=== PATIENT | female | born 1965 | race Caucasian/White ===

== ENCOUNTER 2016-08-10 14:10 | Inpatient (IN) ==
[2016-08-10] MEDS ORDERED: 0.9 % Sodium Chloride 1,000 ML IVC ONE ×5 (14:42→21:06)
--- NOTE | 2016-08-10 15:08 | Emergency Department Note ---
Disposition Clinical Impression: Severe sepsis, UTI (urinary tract infection), Diabetes, Obesity, Tachycardia, Pyelonephritis, Cholelithiasis, Adnexal cyst, Hepatic steatosis, Diverticulosis Disposition: Admitted As Inpatient Referrals: Alvaro Solis MD [Primary Care Provider] - Forms: ED Satisfaction Letter General Adult HPI - General Chief complaint: ED Shortness of Breath/Dyspnea Stated complaint: Fever/cough x4 days Time Seen by Provider: 08/10/16 14:32 Source: patient Mode of arrival: ambulatory Limitations: no limitations Nursing Notes Reviewed: Yes Vital Signs Reviewed: Yes - History of Present Illness HPI Narrative: Ms. Kirkland is a 51 year old female with history of htn and diabetes who presents to the ED complaint of fevers, chills, body aches, and pain with deep inspiration since Friday this week. Patient also reports having episodes of vomiting today. Patient reports fevers have been around 102 regularly. Was seen in PCP office on and reportedly had a negative flu swab and negative urine. Patient reports that she does not feel short of breath, though she feels pain when taking in a deep breath. She denies coughing a lot and reports she has a very mild cough. Patient denies history of smoking or seasonal allergies. Patient has been taking advil to control the fever, but no other medications for symptoms. Patient denies recent travel or other household members being ill. Reports decreased appetite and oral fluid intake. Patient denies sweats, nausea, lightheadedness, headaches, abdominal pain, changes in bowels or bladder, weakness, or loss of sensation. Onset (ago): day(s) Pain Scale: 2 - Related Data Home Medications Medication Instructions Recorded Confirmed Glucotrol 06/14/15 Hydrochlorothiazide 06/14/15 Lisinopril 06/14/15 Previous Rx's Medication Instructions Recorded Eye Lubricant Combination No.1 15 ml OP QID #1 drops 06/14/15 [Freshkote] PredniSONE 60 mg PO ONCE 7 Days 06/14/15 Allergies Allergy/AdvReac Type Severity Reaction Status Date / Time iodine AdvReac See Verified 06/14/15 18:16 Comments Constitutional: Reports: as per HPI, fever, chills. Denies: weakness, night sweats Eyes: Reports: as per HPI ENT ED: Reports: as per HPI Cardiovascular: Reports: as per HPI. Denies: palpitations Respiratory: Reports: as per HPI, cough. Denies: dyspnea, wheezes, sputum production Gastrointestinal: Reports: as per HPI, vomiting. Denies: abdominal pain, nausea , diarrhea, constipation, hematemesis, melena, hematochezia Genitourinary: Reports: as per HPI. Denies: dysuria, frequency, hematuria Musculoskeletal: Reports: as per HPI. Denies: back pain, neck pain Integumentary: Reports: as per HPI. Denies: rash, lesions Neurological: Reports: as per HPI. Denies: headache, weakness, numbness, confusion, abnormal gait Psychiatric: Reports: as per HPI Endocrine: Reports: as per HPI Hematological/Lymphatic: Reports: as per HPI. Denies: easy bleeding, easy bruising Allergic/Immunologic: Reports: as per HPI Past Medical History - Past Medical History Medical history: Reports: diabetes, hypertension Surgical history: Reports: no surgical history Psychiatric history: Reports: no psych history - Social History Smoking Status: Former smoker Alcohol use: Reports: none Drug use: Reports: none Physical Exam - General Limitations: no limitations General appearance: alert, in distress (mild), obese - Head Head exam: atraumatic, normocephalic, normal inspection - Eye Eye exam: Present: normal appearance, PERRL, EOMI - ENT ENT exam: normal exam, normal oropharynx, mucous membranes dry - Neck Neck exam: Present: normal inspection, full ROM, trachea midline - Chest Chest inspection: Present: normal inspection, symmetric chest wall rise. Absent : tenderness - Respiratory Respiratory exam: Present: normal lung sounds bilaterally. Absent: respiratory distress, wheezes, accessory muscle use - Cardiovascular Cardiovascular exam: Present: regular rate, normal rhythm - Abdominal Exam Abdominal exam: Present: soft, tenderness, guarding, rebound, hypoactive bowel sounds, tenderness at McBurney's Point. Absent: distention, rigidity Abdominal tenderness: Present: RLQ, moderate - Extremities Exam Extremities exam: Present: normal inspection, full ROM, normal capillary refill. Absent: tenderness, pedal edema, joint swelling, calf tenderness - Back Exam Back exam: Present: normal inspection, full ROM. Absent: tenderness - Neurological Exam Neurological exam: Present: alert, oriented X3, CN II-XII intact, normal gait, reflexes normal. Absent: motor sensory deficit - Psychiatric Psychiatric exam: Present: normal affect, normal mood - Skin Skin exam: Present: warm, dry, intact, normal color. Absent: rash, diaphoresis , erythema, pallor Course Course Narrative: Patient with history of hypertension and diabetes who presents with complaint of fevers, chills, body aches, vomiting, and pain with deep inspiration. Found to have right sided abdominal tenderness, guarding, and rebound despite patient reports of no abdominal pain. Possible respiratory infection vs symptoms secondary to possible gi/gu etiology. Labs and imaging ordered. - Consultations Consultation #1: Spoke with Dr. Galvan, hospitalist, will admit. Recommends ceftriaxone. Time: 19:08 Vital Signs Temperature 100 F H 08/10/16 14:16 Pulse Rate 145 08/10/16 14:16 Respiratory Rate 18 08/10/16 14:16 Blood Pressure 144/91 08/10/16 14:16 O2 Sat by Pulse Oximetry 95 08/10/16 14:16 Temperature 102.3 F H 08/10/16 18:45 Pulse Rate 132 08/10/16 18:45 Respiratory Rate 20 08/10/16 18:45 Blood Pressure 146/78 08/10/16 18:45 O2 Sat by Pulse Oximetry 95 08/10/16 18:45 Oxygen Delivery Oxygen Delivery Room Air Medical Decision Making - [facility] Narrative Medical decision making narrative: The patient meet severe sepsis criteria and appears to have pyelonephritis in association with her multiple other abnormal findings in the abdomen. Based on her testing she was given IV fluids and antibiotics. We have consulted the hospitalist distribution collection operator for admission. - Lab Data Lab results reviewed: Yes I reviewed the patient's lab results. Result diagrams: 08/10/16 15:40 08/10/16 15:40 Lab Results 08/10/16 08/10/16 08/10/16 Range/Units 15:06 15:40 15:40 WBC 19.6 H (4.3-11.1) K/mcL RBC 4.70 (3.82-4.97) M/mcL Hgb 13.4 (11.5-15.4) g/dL Hct 39.5 (35.3-44.9) % MCV 84.0 (83.0-100.0) fL MCH 28.5 (28.0-33.3) pg MCHC 33.9 (31.6-35.5) g/dL RDW 11.9 (11.5-14.5) % Plt Count 202 (140-400) K/mcL MPV 10.0 (9.4-12.4) fL Seg Neutrophils % 74.0 % Band Neutrophils % 10.0 H (0-4) % Lymphocytes % 6.0 % Monocytes % 10.0 % Neutrophils # 16.5 H (1.6-8.9) K/mcL Lymphocytes # 1.2 (0.6-4.6) K/mcL Monocytes # 2.0 H (0.0-1.3) K/mcL Toxic Granulation Present A (Not Present) Platelet Estimate Normal (Normal) PT 16.6 H (9.4-12.1) Seconds INR 1.5 APTT 28.2 (26.0-36.0) Seconds Sodium (136-145) mEq/L Potassium (3.5-4.5) mEq/L Chloride (98-109) mEq/L Carbon Dioxide (19-29) mEq/L BUN (7-20) mg/dL Creatinine (0.57-1.11) mg/dL Est GFR ( Amer) (> 60) Est GFR (Non-Af Amer) (> 60) BUN/Creatinine Ratio (6-26) Glucose (70-99) mg/dL Calculated Osmolality (280-300) Lactic Acid (0.5-2.2) mmol/L Calcium (8.6-10.8) mg/dL Total Bilirubin (0.2-1.2) mg/dL Direct Bilirubin (0.0-0.5) mg/dL Indirect Bilirubin (0.0-1.2) mg/dL AST (5-34) Units/L ALT (0-55) Units/L Alkaline Phosphatase (38-126) Units/L Troponin I (0-0.03) ng/mL C-Reactive Protein (Less than 5) mg/L B-Natriuretic Peptide (0-100) pg/mL Serum Total Protein (6.0-8.3) g/dL Albumin (3.5-5.0) g/dL Globulin (2.4-3.5) g/dL Albumin/Globulin Ratio (1.1-2.2) Lipase (8-78) Units/L Urine Color Yellow (Yellow) Urine Clarity Turbid A (Clear) Urine pH 6.0 (5.0-8.0) pH Units Ur Specific [place] > 1.030 H (1.010-1.025) Urine Protein 30 H (Neg-Trace) mg/dL Urine Glucose (UA) >=1000 H (Normal) mg/dL Urine Ketones 80 H (Negative) mg/dL Urine Blood Small H (Negative) Urine Nitrite Negative (Negative) Urine Bilirubin Negative (Negative) Urine Urobilinogen Normal (Normal) mg/dL Ur Leukocyte Esterase Moderate H (Negative) Urine Microscopic RBC 5-15 H (0-3) per hpf Urine Microscopic WBC TNTC H (0-3) per hpf Ur Squamous Epith Cells Many H (None-Few) per lpf Urine Bacteria Many H (None-Few) per hpf Hyaline Casts None Seen (None-Few) per lpf Ur Culture Indicated? YES A (NO) 08/10/16 08/10/16 08/10/16 Range/Units 15:40 15:40 15:40 WBC (4.3-11.1) K/mcL RBC (3.82-4.97) M/mcL Hgb (11.5-15.4) g/dL Hct (35.3-44.9) % MCV (83.0-100.0) fL MCH (28.0-33.3) pg MCHC (31.6-35.5) g/dL RDW (11.5-14.5) % Plt Count (140-400) K/mcL MPV (9.4-12.4) fL Seg Neutrophils % % Band Neutrophils % (0-4) % Lymphocytes % % Monocytes % % Neutrophils # (1.6-8.9) K/mcL Lymphocytes # (0.6-4.6) K/mcL Monocytes # (0.0-1.3) K/mcL Toxic Granulation (Not Present) Platelet Estimate (Normal) PT (9.4-12.1) Seconds INR APTT (26.0-36.0) Seconds Sodium 131 L (136-145) mEq/L Potassium 3.5 (3.5-4.5) mEq/L Chloride 97 L (98-109) mEq/L Carbon Dioxide 21 (19-29) mEq/L BUN 9 (7-20) mg/dL Creatinine 0.85 (0.57-1.11) mg/dL Est GFR ( Amer) > 60 (> 60) Est GFR (Non-Af Amer) > 60 (> 60) BUN/Creatinine Ratio 11 (6-26) Glucose 379 H (70-99) mg/dL Calculated Osmolality 286 (280-300) Lactic Acid 2.3 H (0.5-2.2) mmol/L Calcium 8.3 L (8.6-10.8) mg/dL Total Bilirubin 1.2 (0.2-1.2) mg/dL Direct Bilirubin 0.7 H (0.0-0.5) mg/dL Indirect Bilirubin 0.5 (0.0-1.2) mg/dL AST 33 (5-34) Units/L ALT 39 (0-55) Units/L Alkaline Phosphatase 144 H (38-126) Units/L Troponin I 0.00 (0-0.03) ng/mL C-Reactive Protein 284 H (Less than 5) mg/L B-Natriuretic Peptide (0-100) pg/mL Serum Total Protein 6.7 (6.0-8.3) g/dL Albumin 2.5 L (3.5-5.0) g/dL Globulin 4.2 H (2.4-3.5) g/dL Albumin/Globulin Ratio 0.6 L (1.1-2.2) Lipase 4 L (8-78) Units/L Urine Color (Yellow) Urine Clarity (Clear) Urine pH (5.0-8.0) pH Units Ur Specific [place] (1.010-1.025) Urine Protein (Neg-Trace) mg/dL Urine Glucose (UA) (Normal) mg/dL Urine Ketones (Negative) mg/dL Urine Blood (Negative) Urine Nitrite (Negative) Urine Bilirubin (Negative) Urine Urobilinogen (Normal) mg/dL Ur Leukocyte Esterase (Negative) Urine Microscopic RBC (0-3) per hpf Urine Microscopic WBC (0-3) per hpf Ur Squamous Epith Cells (None-Few) per lpf Urine Bacteria (None-Few) per hpf Hyaline Casts (None-Few) per lpf Ur Culture Indicated? (NO) 08/10/16 Range/Units 15:40 WBC (4.3-11.1) K/mcL RBC (3.82-4.97) M/mcL Hgb (11.5-15.4) g/dL Hct (35.3-44.9) % MCV (83.0-100.0) fL MCH (28.0-33.3) pg MCHC (31.6-35.5) g/dL RDW (11.5-14.5) % Plt Count (140-400) K/mcL MPV (9.4-12.4) fL Seg Neutrophils % % Band Neutrophils % (0-4) % Lymphocytes % % Monocytes % % Neutrophils # (1.6-8.9) K/mcL Lymphocytes # (0.6-4.6) K/mcL Monocytes # (0.0-1.3) K/mcL Toxic Granulation (Not Present) Platelet Estimate (Normal) PT (9.4-12.1) Seconds INR APTT (26.0-36.0) Seconds Sodium (136-145) mEq/L Potassium (3.5-4.5) mEq/L Chloride (98-109) mEq/L Carbon Dioxide (19-29) mEq/L BUN (7-20) mg/dL Creatinine (0.57-1.11) mg/dL Est GFR ( Amer) (> 60) Est GFR (Non-Af Amer) (> 60) BUN/Creatinine Ratio (6-26) Glucose (70-99) mg/dL Calculated Osmolality (280-300) Lactic Acid (0.5-2.2) mmol/L Calcium (8.6-10.8) mg/dL Total Bilirubin (0.2-1.2) mg/dL Direct Bilirubin (0.0-0.5) mg/dL Indirect Bilirubin (0.0-1.2) mg/dL AST (5-34) Units/L ALT (0-55) Units/L Alkaline Phosphatase (38-126) Units/L Troponin I (0-0.03) ng/mL C-Reactive Protein (Less than 5) mg/L B-Natriuretic Peptide 32 (0-100) pg/mL Serum Total Protein (6.0-8.3) g/dL Albumin (3.5-5.0) g/dL Globulin (2.4-3.5) g/dL Albumin/Globulin Ratio (1.1-2.2) Lipase (8-78) Units/L Urine Color (Yellow) Urine Clarity (Clear) Urine pH (5.0-8.0) pH Units Ur Specific [place] (1.010-1.025) Urine Protein (Neg-Trace) mg/dL Urine Glucose (UA) (Normal) mg/dL Urine Ketones (Negative) mg/dL Urine Blood (Negative) Urine Nitrite (Negative) Urine Bilirubin (Negative) Urine Urobilinogen (Normal) mg/dL Ur Leukocyte Esterase (Negative) Urine Microscopic RBC (0-3) per hpf Urine Microscopic WBC (0-3) per hpf Ur Squamous Epith Cells (None-Few) per lpf Urine Bacteria (None-Few) per hpf Hyaline Casts (None-Few) per lpf Ur Culture Indicated? (NO) - Radiology Data Radiology results reviewed: Yes I reviewed the patient's radiology results. Chest X-Ray 08/10/16 14:43 IMPRESSION: No acute cardiopulmonary process. D/ / 08/10/2016 15:16:55 Marry Rizvi MD / Paulette Green Interpreting Provider: Marry Rizvi MD Abdomen/Pelvis CT 08/10/16 15:02 IMPRESSION: Imaging findings most consistent with an acute right-sided pyelonephritis. Incidental findings including mild hepatomegaly with hepatic steatosis and cholelithiasis. Diverticulosis coli and right adnexal cyst. D/ / Oumar Nagel MD / Oumar Nagel MD Interpreting Provider: Oumar Nagel MD - EKG Data EKG #1 EKG attestation: Yes I reviewed and interpreted this EKG. EKG results narrative: Sinus tachycardia rate 139, pr int 120 ms, qrs 84ms, QT/QTc 329/410, P-R-T axes 10 9 -13, no st elevations or depression, no t wave inversions noted.
[2016-08-10 15:27] LABS: Bilirubin,Urine Negative (Negative); Blood,Urine Small (Negative); Clarity,Urine Turbid (Clear); Color,Urine Yellow (Yellow); Glucose,Urine (UA) >=1000 mg/dL (Normal); Ketones,Urine 80 mg/dL (Negative); Leukocyte Esterase,Urine Moderate (Negative); Nitrite,Urine Negative (Negative); Protein,Urine 30 mg/dL (Neg-Trace); Specific Gravity,Urine > 1.030 (1.010-1.025); Urobilinogen,Urine Normal (Normal)
[2016-08-10 15:29] LABS: Bacteria,Urine Many per hpf (None-Few); Hyaline Casts,Urine None Seen per lpf (None-Few); Squamous Epithelial Cell,Urine Many per lpf (None-Few); WBC,Urine TNTC per hpf (0-3)
[2016-08-10 15:52] LABS: Hematocrit 39.5 % (35.3-44.9); Hemoglobin 13.4 g/dL (11.5-15.4); Mean Corpuscular HGB Conc 33.9 g/dL (31.6-35.5); Mean Corpuscular Hemoglobin 28.5 pg (28.0-33.3); Platelet Count 202 K/mcL (140-400); Red Cell Distribution Width 11.9 % (11.5-14.5)
[2016-08-10 16:09] LABS: Alanine Aminotransferase 39 Units/L (0-55); Albumin 2.5 g/dL (3.5-5.0); Albumin/Globulin Ratio 0.6 (1.1-2.2); Alkaline Phosphatase 144 Units/L (38-126); Aspartate Amino Transferase 33 Units/L (5-34); BUN/Creatinine Ratio 11 (6-26); Bilirubin,Direct 0.7 mg/dL (0.0-0.5); Bilirubin,Indirect 0.5 mg/dL (0.0-1.2); Bilirubin,Total 1.2 mg/dL (0.2-1.2); Blood Urea Nitrogen 9 mg/dL (7-20); Calcium 8.3 mg/dL (8.6-10.8); Carbon Dioxide 21 mEq/L (19-29); Chloride 97 mEq/L (98-109); Globulin 4.2 g/dL (2.4-3.5); Glucose 379 mg/dL (70-99); Osmolality,Calculated 286 (280-300); Potassium 3.5 mEq/L (3.5-4.5); Sodium 131 mEq/L (136-145); Total Protein 6.7 g/dL (6.0-8.3); eGFR For African Americans > 60 (> 60); eGFR For Non-African Americans > 60 (> 60)
[2016-08-10 16:11] LABS: INR 1.5; Prothrombin Time 16.6 Seconds (9.4-12.1)
[2016-08-10 16:13] LABS: Lymphocytes # 1.2 K/mcL (0.6-4.6); Neutrophils # 16.5 K/mcL (1.6-8.9); Platelet Estimate Normal (Normal)
[2016-08-10 16:14] LABS: Activated Partial Thrombo Time 28.2 Seconds (26.0-36.0); Toxic Granulation Present (Not Present)
[2016-08-10 16:27] LABS: C-Reactive Protein 284 mg/L (Less than 5)
[2016-08-10 17:21] LABS: Lipase 4 Units/L (8-78)
[2016-08-10] MEDS ORDERED: *HR* HYDROmorphone (PF) 1 MG/ML SYRINGE IVP ONE (18:01)
--- NOTE | 2016-08-10 18:53 | Emergency Department Note ---
START Narrative - START START: I spent direct [id number] time with the patient and evaluated the patient with the resident and agree with their assessment findings and plan. The patient appears to have pyelonephritis in association with severe sepsis. The patient will require admission to the hospital. She was given fluid therapy as well as IV antibiotics.
[2016-08-10] MEDS ORDERED: Ondansetron 4 MG/2 ML VIAL IVP ONE (19:23)
[2016-08-10] MEDS ORDERED: Ondansetron ODT 4 MG TAB.RAPDIS SL PRN (20:52)
[2016-08-10] MEDS ORDERED: Naloxone 0.4 MG/ML INJ IVP PRN (20:52)
[2016-08-10] MEDS ORDERED: *HR* HYDROcodone/Acet 5/325 mg TABLET PO PRN (20:52)
[2016-08-10] MEDS ORDERED: *HR* Morphine 2 MG/ML SYRINGE IVP PRN (20:52)
[2016-08-10] MEDS ORDERED: *HR* Dextrose 50 % in Water (Syg) 50 ML SYRINGE IVP PRN (21:07)
[2016-08-10] MEDS ORDERED: Dextrose Gel 15 GM PO PRN ×2 (21:07)
[2016-08-10] MEDS ORDERED: D5% in Water 1,000 ML IV PRN (21:07)
--- NOTE | 2016-08-10 21:14 | Internal Med History&Physical ---
<Karla Langford - Last Filed: 08/10/16 22:06> Date of Encounter: 08/10/16 Time of Encounter: 21:14 Assessment and Plan (1) Pyelonephritis Current visit: Yes Status: Acute Patient presented with fever and chills for 4 days found to have right pyelonephritis on CT scan. Urine cultures sent. Will treat with ceftriaxone and supportive care. 1. Urine culture pending 2. Ceftriaxone 1gm every 12 hours 3. Supportive care. (2) Severe sepsis Current visit: Yes Status: Acute Patient with temperature of 102.3 and heart rate sustained in the 130s as well as WBC of 19. Source is most likely pyelonephritis. Will treat with fluids and antibiotics. Will monitor vitals and trend WBC, LA and CRP. 1. Ceftriaxone 1gm every 12 hours 2. Fluids - patient received 3L in the ED, will give 2 more before switching to maintenance fluids. 3. Monitor vitals 4. Trend WBC, LA, CRP 5. Supportive care - lopressor for sustained tachycardia >130bpm, tylenol for fevers, pain control (3) Tachycardia Current visit: Yes Status: Acute Patient with tachycardia secondary to severe sepsis. Giving more fluids and treating underlying cause. Expect tachycardia to resolve as patient's volume status improves and as the antibiotics take effect. Will monitor. Lopressor PRN for tachycardia >130bpm sustained. (4) Hypertension Current visit: Yes Status: Acute Patient with hypertension. Will monitor and treat with home medication dose. Qualifiers: Hypertension type: essential hypertension Qualified Code(s): I10 - Essential (primary) hypertension (5) Diabetes Current visit: Yes Status: Acute Patient with T2DM on metformin. Will monitor blood glucose levels. Holding metformin after contrast CT and while in the hospital. Will start patient on low intensity sliding scale insulin ACHS. Qualifiers: Diabetes mellitus type: type 2 Diabetes mellitus complication status: with unspecified complications Diabetes mellitus rat exterminator insulin use: unspecified rat exterminator insulin use status Qualified Code(s): E11.8 - Type 2 diabetes mellitus with unspecified complications (6) DVT prophylaxis Current visit: Yes Status: Acute Heparin for DVT prophylaxis. Internal Medicine - H&P: HPI Chief complaint: Fever/chills, body aches Admitted From: Emergency Dept Plans for Post Hospital Care: Home History of present illness: Ms. Kirkland is a 51 year old female with PMH of HTN and diabetes who prsents with fevers and chills for 4 days. Patient reports that 4 days ago she spike a fever and noticed that her back and right flank were painful. She went to her PCP 2 days ago because of the continued fevers and all over body aches. They did a flu test that was negative and sent a urine. Patient reports that the fevers continued and today she became nauseous and vomited so she came to the ED Patient states that she aches everywhere and that despite taking tylenol and iburpofen she has a fever. She reports associated lightheadedness, occasional non-productive cough, nausea/vomiting, abdominal discomfort, pressure with urination, Denies syncope, vision changes, runny nose/ congestion, chest pain, shortness of breath, diarrhea/constipation or focal weakness. In the ED, patient's temperature was 102.3, HR sustained in the 130s. Respiratory rate, blood pressure and oxygenation saturation within normal limits. Patient was found to have eukocytosis at 19.6 with bandemia and toxic granulations. Glucose elevated at 379. LA and CRP both elevated. UA showed elevated specific gravity and positive for protein, ketones, leukocyte esterase , WBC, RBC and bacteria. Flu swab today negative. CXR showed no acute abnormalities. CT abdomen/pelvs showed acute right pyelonephritis as well as mild hepatomegaly with hepatic steatosis, cholelithiasis, diverticulosis and right adenexal cyst. On exam, patient is awake and alert, conversing appropriately. Heart rate is elevated around 130 on exam. Lungs clear to auscultation bilateral. Abdomen soft but tender suprapubic and right side and flank with involuntery guarding. No rebound or rigidiy. No pedal edema. Past Med Surg Social Fam HX - Past Medical History Medical history: diabetes, hypertension Psychiatric history: no psych history - Past Surgical History Surgical History: no surgical history - Social History Smoking Status: Former smoker Alcohol use: none Drug use: none Internal Medicine - H&P: Meds Eye Lubricant Combination No.1 [Freshkote] 15 ml OP QID #1 drops 06/14/15 [Rx] Glucotrol 06/14/15 [History] Hydrochlorothiazide 06/14/15 [History] Lisinopril 06/14/15 [History] PredniSONE 60 mg PO ONCE 7 Days 06/14/15 [Rx] Allergies iodine Adverse Reaction (Verified 06/14/15 18:16) See Comments All Systems PM: A 10-system review of systems was performed and is negative for pertinent findings except as documented above in the HPI. - Constitutional Constitutional: chills, fatigue, fever(s), malaise, no falls - EENT Eyes: no blurry vision, no change in vision Nose, mouth and throat: dry mouth, no nasal congestion, no nasal discharge, no sore throat - Cardiovascular Cardiovascular ROS IM: no chest pain, no dyspnea, no dyspnea on exertion, no edema, no irregular heart rhythm, no palpitations - Respiratory Respiratory: cough, pain on inspiration, no dyspnea, no wheezing - Gastrointestinal Gastrointestinal: abdominal pain, nausea, vomiting, no change in stool character , no constipation, no diarrhea, no heartburn, no hematemesis, no hematochezia, no melena - Genitourinary Genitourinary: flank pain, no dysuria, no hematuria, no urinary frequency, no urinary hesitancy, no urinary incontinence, no urinary urgency - Musculoskeletal Musculoskeletal ROS IM: myalgias - Neurological Neurological ROS: dizziness, headache(s), no confusion, no loss of vision, no weakness - Constitutional Vitals: Temp Pulse Resp BP Pulse Ox 100.4 F H 129 20 127/75 94 L 08/10/16 20:55 08/10/16 20:55 08/10/16 20:55 08/10/16 20:55 08/10/16 20:55 General appearance: Present: A&O X 3, no acute distress, answers questions appropriately - Head Head exam: Present: atraumatic, normal inspection, normocephalic - Eye Eye exam: Present: EOMI, normal appearance, PERRL - ENT ENT exam: Present: mucous membranes dry - Respiratory Respiratory exam: Present: CTAB. Absent: decreased breath sounds, rales, rhonchi, wheezes - Cardiovascular Cardiovascular exam: Present: tachycardia - GI/Abdominal GI/Abdominal exam: Present: guarding, normal bowel sounds, soft, tenderness. Absent: rebound, rigid - Extremities Exam Extremities exam: Present: normal inspection. Absent: pedal edema - Neurological Exam Neurological exam: Present: alert, CN II-XII intact, oriented X3, no focal deficits Internal Med - H&P Results - Labs CBC & Chem 7: 08/10/16 15:40 08/10/16 15:40 <Sushant Adame - Last Filed: 08/10/16 23:04> Date of Encounter: 08/10/16 Assessment and Plan (1) SIRS due to infectious process with acute organ dysfunction Current visit: Yes Status: Acute . (2) Obesity (BMI 30-39.9) Current visit: Yes Status: Acute . (3) Sinus tachycardia Current visit: Yes Status: Acute . (4) Type II diabetes mellitus Current visit: Yes Status: Acute . Qualifiers: Diabetes mellitus complication status: with unspecified complications Diabetes mellitus rat exterminator insulin use: without fdc use Qualified Code( s): E11.8 - Type 2 diabetes mellitus with unspecified complications (5) Diverticulosis large intestine w/o perforation or abscess w/o bleeding Current visit: Yes Status: Chronic . (6) Asymptomatic cholelithiasis Current visit: Yes Status: Chronic . (7) Ovarian cyst, right Current visit: Yes Status: Chronic . (8) Bandemia without diagnosis of specific infection Current visit: Yes Status: Acute . (9) Neutrophilic leukocytosis Current visit: Yes Status: Acute . (10) Dehydration with hyponatremia Current visit: Yes Status: Acute . (11) DM (diabetes mellitus), secondary uncontrolled Current visit: Yes Status: Acute . (12) Hypoalbuminemia due to protein-calorie malnutrition Current visit: Yes Status: Chronic . (13) Febrile illness, acute Current visit: Yes Status: Acute . (14) Hepatic steatosis Current visit: Yes Status: Chronic . (15) Hypertension Current visit: Yes Status: Acute Qualifiers: Hypertension type: essential hypertension Qualified Code(s): I10 - Essential (primary) hypertension (16) Pyelonephritis Current visit: Yes Status: Acute (17) Severe sepsis Current visit: Yes Status: Acute (18) UTI (urinary tract infection) Current visit: Yes Status: Acute . Qualifiers: Urinary tract infection type: acute pyelonephritis Qualified Code(s): N10 - Acute pyelonephritis Internal Medicine - H&P: HPI History of present illness: Ms. Kirkland is a 51 year old female patient admitted to [facility] via the emergency department when she presented with complaints of abdominal pain, fever, cough and difficulty breathing of several days' duration. The patient was visited and interviewed and examined. I examined this patient and my medical decision-making was reviewed with the Resident Physician. For this encounter, I have reviewed the documentation, treatment plan, and medical decision making. I agree with the documented findings, disposition and treatment plan as described except to the extent set forth below. Cumulative laboratory and radiographic database was reviewed, considered and discussed. Given the patient's presenting concerns, past medical history, clinical findings and symptoms, she is admitted at this time to undergo further evaluation and disposition. Past Med Surg Social Fam HX - Social History Smoking Status: Former smoker Alcohol use: none Drug use: none Occupational status: unemployed Current living situation: With Family Activity Level: Independent ambulation, Mostly sedentary Recent Out of Country Travel Within the Last 8 Weeks: No Exposure or Possible Exposure to Illness During Travel: No All Systems PM: A 10-system review of systems was performed and is negative for pertinent findings except as documented above in the HPI. - Constitutional Vitals: Temp Pulse Resp BP Pulse Ox 100.4 F H 129 20 127/75 94 L 08/10/16 20:55 08/10/16 20:55 08/10/16 20:55 08/10/16 20:55 08/10/16 20:55 Internal Med - H&P Results - Labs CBC & Chem 7: 08/10/16 15:40 08/10/16 15:40 Labs: Vital Signs Temp Pulse Resp BP Pulse Ox 08/10/16 20:55 100.4 F H 129 20 127/75 94 L 08/10/16 20:02 18 132/81 08/10/16 19:17 132 18 144/75 95 08/10/16 18:45 102.3 F H 132 20 146/78 95 08/10/16 15:19 139 153/91 08/10/16 14:32 139 12 159/97 96 08/10/16 14:31 96 08/10/16 14:16 100 F H 145 18 144/91 95 Intake and Output 08/10/16 08/10/16 08/10/16 07:59 15:59 23:59 Intake Total 2200 / 2200 Balance 2200 / 2200 Intake: IV Fluids 2200 / 2200 0.9 % Sodium Chloride 1, 2000 / 2000 000 ML @ 3750 mls/hr IVC .Q16M ONE Rx#:[id number] Cipro 400 MG/200 ML 400 200 / 200 mg In 200 ml @ 200 mls/hr IVPB ONCE ONE Rx#: [id number] Other: Weight 79.379 kg 81.102 kg Blood Glucose* 309 Patient Weight 08/10/16 23:59 Weight 81.102 kg Short CBC 08/10/16 Range/Units 15:40 WBC 19.6 H (4.3-11.1) K/mcL Hgb 13.4 (11.5-15.4) g/dL Hct 39.5 (35.3-44.9) % Plt Count 202 (140-400) K/mcL Neutrophils # 16.5 H (1.6-8.9) K/mcL BMP 08/10/16 Range/Units 15:40 Sodium 131 L (136-145) mEq/L Potassium 3.5 (3.5-4.5) mEq/L Chloride 97 L (98-109) mEq/L Carbon Dioxide 21 (19-29) mEq/L BUN 9 (7-20) mg/dL Creatinine 0.85 (0.57-1.11) mg/dL Glucose 379 H (70-99) mg/dL Calcium 8.3 L (8.6-10.8) mg/dL Cardiac Enzymes 08/10/16 Range/Units 15:40 Troponin I 0.00 (0-0.03) ng/mL Liver Function 08/10/16 Range/Units 15:40 Total Bilirubin 1.2 (0.2-1.2) mg/dL Direct Bilirubin 0.7 H (0.0-0.5) mg/dL AST 33 (5-34) Units/L ALT 39 (0-55) Units/L Alkaline Phosphatase 144 H (38-126) Units/L Albumin 2.5 L (3.5-5.0) g/dL Urine 08/10/16 Range/Units 15:06 Urine Color Yellow (Yellow) Urine Clarity Turbid A (Clear) Urine pH 6.0 (5.0-8.0) pH Units Ur Specific [place] > 1.030 H (1.010-1.025) Urine Protein 30 H (Neg-Trace) mg/dL Urine Glucose (UA) >=1000 H (Normal) mg/dL - Impressions Abnormal lab results WBC 19.6 K/mcL (4.3-11.1) H 08/10/16 15:40 Band Neutrophils % 10.0 % (0-4) H 08/10/16 15:40 Neutrophils # 16.5 K/mcL (1.6-8.9) H 08/10/16 15:40 Monocytes # 2.0 K/mcL (0.0-1.3) H 08/10/16 15:40 Toxic Granulation Present (Not Present) A 08/10/16 15:40 PT 16.6 Seconds (9.4-12.1) H 08/10/16 15:40 Sodium 131 mEq/L (136-145) L 08/10/16 15:40 Chloride 97 mEq/L (98-109) L 08/10/16 15:40 Glucose 379 mg/dL (70-99) H 08/10/16 15:40 Lactic Acid 2.3 mmol/L (0.5-2.2) H 08/10/16 15:40 Calcium 8.3 mg/dL (8.6-10.8) L 08/10/16 15:40 Direct Bilirubin 0.7 mg/dL (0.0-0.5) H 08/10/16 15:40 Alkaline Phosphatase 144 Units/L (38-126) H 08/10/16 15:40 C-Reactive Protein 284 mg/L (Less than 5) H 08/10/16 15:40 Albumin 2.5 g/dL (3.5-5.0) L 08/10/16 15:40 Globulin 4.2 g/dL (2.4-3.5) H 08/10/16 15:40 Albumin/Globulin Ratio 0.6 (1.1-2.2) L 08/10/16 15:40 Lipase 4 Units/L (8-78) L 08/10/16 15:40 Urine Clarity Turbid (Clear) A 08/10/16 15:06 Ur Specific [place] > 1.030 (1.010-1.025) H 08/10/16 15:06 Urine Protein 30 mg/dL (Neg-Trace) H 08/10/16 15:06 Urine Glucose (UA) >=1000 mg/dL (Normal) H 08/10/16 15:06 Urine Ketones 80 mg/dL (Negative) H 08/10/16 15:06 Urine Blood Small (Negative) H 08/10/16 15:06 Ur Leukocyte Esterase Moderate (Negative) H 08/10/16 15:06 Urine Microscopic RBC 5-15 per hpf (0-3) H 08/10/16 15:06 Urine Microscopic WBC TNTC per hpf (0-3) H 08/10/16 15:06 Ur Squamous Epith Cells Many per lpf (None-Few) H 08/10/16 15:06 Urine Bacteria Many per hpf (None-Few) H 08/10/16 15:06 Ur Culture Indicated? YES (NO) A 08/10/16 15:06 Laboratory Results WBC 19.6 K/mcL (4.3-11.1) H 08/10/16 15:40 RBC 4.70 M/mcL (3.82-4.97) 08/10/16 15:40 Hgb 13.4 g/dL (11.5-15.4) 08/10/16 15:40 Hct 39.5 % (35.3-44.9) 08/10/16 15:40 MCV 84.0 fL (83.0-100.0) 08/10/16 15:40 MCH 28.5 pg (28.0-33.3) 08/10/16 15:40 MCHC 33.9 g/dL (31.6-35.5) 08/10/16 15:40 RDW 11.9 % (11.5-14.5) 08/10/16 15:40 Plt Count 202 K/mcL (140-400) 08/10/16 15:40 MPV 10.0 fL (9.4-12.4) 08/10/16 15:40 Seg Neutrophils % 74.0 % 08/10/16 15:40 Band Neutrophils % 10.0 % (0-4) H 08/10/16 15:40 Lymphocytes % 6.0 % 08/10/16 15:40 Monocytes % 10.0 % 08/10/16 15:40 Neutrophils # 16.5 K/mcL (1.6-8.9) H 08/10/16 15:40 Lymphocytes # 1.2 K/mcL (0.6-4.6) 08/10/16 15:40 Monocytes # 2.0 K/mcL (0.0-1.3) H 08/10/16 15:40 Toxic Granulation Present (Not Present) A 08/10/16 15:40 Platelet Estimate Normal (Normal) 08/10/16 15:40 PT 16.6 Seconds (9.4-12.1) H 08/10/16 15:40 INR 1.5 08/10/16 15:40 APTT 28.2 Seconds (26.0-36.0) 08/10/16 15:40 Sodium 131 mEq/L (136-145) L 08/10/16 15:40 Potassium 3.5 mEq/L (3.5-4.5) 08/10/16 15:40 Chloride 97 mEq/L (98-109) L 08/10/16 15:40 Carbon Dioxide 21 mEq/L (19-29) 08/10/16 15:40 BUN 9 mg/dL (7-20) 08/10/16 15:40 Creatinine 0.85 mg/dL (0.57-1.11) 08/10/16 15:40 Est GFR ( Amer) > 60 (> 60) 08/10/16 15:40 Est GFR (Non-Af Amer) > 60 (> 60) 08/10/16 15:40 BUN/Creatinine Ratio 11 (6-26) 08/10/16 15:40 Glucose 379 mg/dL (70-99) H 08/10/16 15:40 Calculated Osmolality 286 (280-300) 08/10/16 15:40 Lactic Acid 2.3 mmol/L (0.5-2.2) H 08/10/16 15:40 Calcium 8.3 mg/dL (8.6-10.8) L 08/10/16 15:40 Total Bilirubin 1.2 mg/dL (0.2-1.2) 08/10/16 15:40 Direct Bilirubin 0.7 mg/dL (0.0-0.5) H 08/10/16 15:40 Indirect Bilirubin 0.5 mg/dL (0.0-1.2) 08/10/16 15:40 AST 33 Units/L (5-34) 08/10/16 15:40 ALT 39 Units/L (0-55) 08/10/16 15:40 Alkaline Phosphatase 144 Units/L (38-126) H 08/10/16 15:40 Troponin I 0.00 ng/mL (0-0.03) 08/10/16 15:40 C-Reactive Protein 284 mg/L (Less than 5) H 08/10/16 15:40 B-Natriuretic Peptide 32 pg/mL (0-100) 08/10/16 15:40 Serum Total Protein 6.7 g/dL (6.0-8.3) 08/10/16 15:40 Albumin 2.5 g/dL (3.5-5.0) L 08/10/16 15:40 Globulin 4.2 g/dL (2.4-3.5) H 08/10/16 15:40 Albumin/Globulin Ratio 0.6 (1.1-2.2) L 08/10/16 15:40 Lipase 4 Units/L (8-78) L 08/10/16 15:40 Urine Color Yellow (Yellow) 08/10/16 15:06 Urine Clarity Turbid (Clear) A 08/10/16 15:06 Urine pH 6.0 pH Units (5.0-8.0) 08/10/16 15:06 Ur Specific [place] > 1.030 (1.010-1.025) H 08/10/16 15:06 Urine Protein 30 mg/dL (Neg-Trace) H 08/10/16 15:06 Urine Glucose (UA) >=1000 mg/dL (Normal) H 08/10/16 15:06 Urine Ketones 80 mg/dL (Negative) H 08/10/16 15:06 Urine Blood Small (Negative) H 08/10/16 15:06 Urine Nitrite Negative (Negative) 08/10/16 15:06 Urine Bilirubin Negative (Negative) 08/10/16 15:06 Urine Urobilinogen Normal mg/dL (Normal) 08/10/16 15:06 Ur Leukocyte Esterase Moderate (Negative) H 08/10/16 15:06 Urine Microscopic RBC 5-15 per hpf (0-3) H 08/10/16 15:06 Urine Microscopic WBC TNTC per hpf (0-3) H 08/10/16 15:06 Ur Squamous Epith Cells Many per lpf (None-Few) H 08/10/16 15:06 Urine Bacteria Many per hpf (None-Few) H 08/10/16 15:06 Hyaline Casts None Seen per lpf (None-Few) 08/10/16 15:06 Ur Culture Indicated? YES (NO) A 08/10/16 15:06 Impressions Chest X-Ray 08/10/16 14:43 IMPRESSION: No acute cardiopulmonary process. D/ / 08/10/2016 15:16:55 Marry Rizvi MD / Paulette Green Interpreting Provider: Marry Rizvi MD Abdomen/Pelvis CT 08/10/16 15:02 IMPRESSION: Imaging findings most consistent with an acute right-sided pyelonephritis. Incidental findings including mild hepatomegaly with hepatic steatosis and cholelithiasis. Diverticulosis coli and right adnexal cyst. D/ / Oumar Nagel MD / Oumar Nagel MD Interpreting Provider: Oumar Nagel MD - Attending Attestation My signature below is to certify that this patient is under my care and that I, or the Resident Physician working with me, has had a [id number] encounter with this patient. Plan of care has been reviewed and discussed in detail with the patient. Questions addressed. Advance care directive discussion briefly addressed. The patient does not declare any healthcare restrictions at this time. Outpatient medications schedules will be reviewed, confirmed and facilitated as appropriate. Reconciliation of home treatments including adjustments, substitutions and reintroduction of the treated regimen will address this maintenance therapies for chronic pre-existing medical conditions. Hospital course dictated by clinical findings, treatment response and potential consultative interventions. The patient is at risk for further acute clinical decline and morbidity given this presenting chief complaint, findings and comorbidities. Condition is serious. Prognosis is cautiously optimistic. CODE STATUS is full.
[2016-08-10] MEDS ORDERED: *HR* Metoprolol 5 MG/5 ML VIAL IVP PRN (21:54)
[2016-08-10] MEDS ORDERED: *HR* Heparin 5,000 UNIT/ML VIAL SQ SCH (22:00)
[2016-08-10] MEDS ORDERED: Ondansetron 4 MG/2 ML VIAL IVP PRN (22:34)
[2016-08-10] MEDS ORDERED: Pantoprazole 40 MG VIAL IVP STA (22:34)
[2016-08-10] MEDS ORDERED: Ketorolac 30 MG/ML VIAL IVP ONE (23:05)
[2016-08-10] MEDS ORDERED: *HR* Enoxaparin 40 MG/0.4 ML SYRINGE SQ ONE (23:06)
[2016-08-10] MEDS ORDERED: *HR* LORazepam 0.5 MG TABLET PO PRN (23:07)
[2016-08-11] MEDS: Melatonin 3 MG TABLET PO SCH ×2 (00:14→21:19)
[2016-08-11] MEDS: 0.9 % Sodium Chloride 1,000 ML IVC SCH ×4 (01:30→21:19)
[2016-08-11 05:31] LABS: Creatinine,Urine 97 mg/dL; Microalbum/Creatinine Ratio,Ur 106 (0-30); Microalbumin,Urine 103 mg/L
[2016-08-11 06:45] LABS: Hematocrit 34.2 % (35.3-44.9); Hemoglobin 11.9 g/dL (11.5-15.4); Mean Corpuscular HGB Conc 34.8 g/dL (31.6-35.5); Mean Corpuscular Hemoglobin 29.4 pg (28.0-33.3); Mean Corpuscular Volume 84.4 fL (83.0-100.0); Mean Platelet Volume 10.1 fL (9.4-12.4); Platelet Count 170 K/mcL (140-400); Red Blood Count 4.05 M/mcL (3.82-4.97); Red Cell Distribution Width 12.3 % (11.5-14.5)
[2016-08-11 06:57] LABS: BUN/Creatinine Ratio 16 (6-26); Blood Urea Nitrogen 12 mg/dL (7-20); Calcium 7.7 mg/dL (8.6-10.8); Carbon Dioxide 19 mEq/L (19-29); Chloride 102 mEq/L (98-109); Glucose 267 mg/dL (70-99); Magnesium 1.4 mg/dL (1.6-2.6); Osmolality,Calculated 281 (280-300); Phosphorous 1.8 mg/dL (2.3-4.7); Potassium 3.2 mEq/L (3.5-4.5); Sodium 131 mEq/L (136-145); eGFR For African Americans > 60 (> 60); eGFR For Non-African Americans > 60 (> 60)
[2016-08-11] MEDS: *HR* Enoxaparin 40 MG/0.4 ML SYRINGE SQ SCH (07:03)
[2016-08-11 07:20] LABS: Hemoglobin A1C 11.6 %
[2016-08-11 07:52] LABS: Lymphocytes # 0.9 K/mcL (0.6-4.6); Monocytes # 1.5 K/mcL (0.0-1.3); Neutrophils # 12.8 K/mcL (1.6-8.9); Platelet Estimate Normal (Normal)
[2016-08-11 07:54] LABS: Dohle Bodies Present (Not Present)
[2016-08-11] MEDS: Insulin LISPRO 300 UNITS/3 ML VIAL SQ SCH ×4 (08:09→21:19)
[2016-08-11] MEDS: Artificial Tears SOLN 15 ML BOTTLE OP SCH ×4 (08:10→21:20)
--- NOTE | 2016-08-11 08:57 | Internal Med Progress Note ---
Date of Encounter: 08/11/16 Time of Encounter: 08:54 - Assessment and plan (1) Severe sepsis Current Visit: Yes Status: Acute Assessment and plan: Sepsis secondary to right pyelonephritis with a positive culture on 08/08/2016 with the Escherichia coli pansensitive Bandemia of 26%, toxic granulation Received 1 dose of ciprofloxacin at the ER Continue Rocephin day 2 Increase IV fluids Pain control with Dilaudid CT scan of the abdomen shows right pyelonephritis, diverticulosis, in the right adnexal cyst High risk due to sepsis (2) Pyelonephritis Current Visit: Yes Status: Acute (3) Adnexal cyst Current Visit: Yes Status: Acute Assessment and plan: Incidental finding on the right pelvis (4) DM (diabetes mellitus), secondary uncontrolled Current Visit: Yes Status: Acute Assessment and plan: Hold metformin and Glucotrol Continue insulin sliding scale (5) Dehydration with hyponatremia Current Visit: Yes Status: Acute Assessment and plan: Secondary to sepsis (6) Diverticulosis Current Visit: Yes Status: Acute Qualifiers: Diverticulosis site: unspecified location Diverticulosis bleeding: diverticulosis without bleeding Qualified Code(s): K57.90 - Diverticulosis of intestine, part unspecified, without perforation or abscess without bleeding (7) Hypokalemia Current Visit: Yes Status: Acute Assessment and plan: Replete as needed - Time Spent With Patient Greater than 35 minutes - Subjective Interval history: Complains of severe right lumbar pain 8 out of 10 in intensity, dysuria, fevers of 102.3 last night. Feels very thirsty. Complains of some abdominal pain, nausea, no diarrhea, no chest pain - Constitutional Vitals: Temp Pulse Resp BP Pulse Ox 99.2 F 107 17 122/75 95 08/11/16 06:58 08/11/16 06:58 08/11/16 06:58 08/11/16 06:58 08/11/16 06:58 General appearance: Present: A&O X 3, no acute distress, obese, answers questions appropriately - Head Head exam: Present: atraumatic, normocephalic - Eye Eye exam: Present: PERRL, conjuntiva pink, sclera anicteric Pupils: Present: PERRL - Neck Neck exam general surgery: Present: supple, trachea midline. Absent: lymphadenopathy - Respiratory Respiratory exam: Present: decreased breath sounds, CTAB. Absent: accessory muscle use, rales, rhonchi, wheezes - Cardiovascular Cardiovascular exam: Present: RRR, +S1, +S2. Absent: diastolic murmur, gallop, rubs, systolic murmur - GI/Abdominal GI/Abdominal exam: Present: distended, normal bowel sounds, soft, no peritoneal signs. Absent: tenderness Additional comments: Right lumbar area tenderness - Extremities Exam Extremities exam: Present: warm, radial pulses palpable and symetrical. Absent : calf tenderness, cyanotic, pedal edema - Neurological Exam Neurological exam: Present: CN II-XII intact, oriented X3, no focal deficits. Absent: pronater drift, facial droop, speech deficit - Skin Skin exam: Present: dry, intact Internal Medicine: Result - Labs CBC & Chem 7: 08/11/16 06:27 08/11/16 06:27 Labs: Short CBC 08/11/16 Range/Units 06:27 WBC 15.2 H (4.3-11.1) K/mcL Hgb 11.9 D (11.5-15.4) g/dL Hct 34.2 L (35.3-44.9) % Plt Count 170 (140-400) K/mcL Neutrophils # 12.8 H (1.6-8.9) K/mcL BMP 08/11/16 06:27 Sodium 131 L Potassium 3.2 L Chloride 102 Carbon Dioxide 19 BUN 12 Creatinine 0.73 Glucose 267 H Calcium 7.7 L - ABG Interpretation ABG results: PT/INR, D-dimer PT 16.6 Seconds (9.4-12.1) H 08/10/16 15:40 Consult Discharge Plan - Plan Referrals: Alvaro Solis MD [Primary Care Provider] -
[2016-08-11] MEDS: Magnesium Oxide 400 MG TABLET PO SCH ×2 (11:42→21:19)
[2016-08-11] MEDS: Acetaminophen 325 MG TABLET PO PRN ×2 (11:42→17:54)
[2016-08-11 11:59] LABS: C-Reactive Protein 273 mg/L (Less than 5)
[2016-08-11 12:47] LABS: Acinetobacter baumannii by PCR Not Detected (Not Detect); Candida albicans by PCR Not Detected (Not Detect); Candida glabrata by PCR Not Detected (Not Detect); Candida krusei by PCR Not Detected (Not Detect); Candida parapsilosis by PCR Not Detected (Not Detect); Candida tropicalis by PCR Not Detected (Not Detect); Enterococcus by PCR Not Detected (Not Detect); Escherichia coli by PCR ***DETECTED*** (Not Detect); Klebsiella oxytoca by PCR Not Detected (Not Detect); Klebsiella pneumoniae by PCR Not Detected (Not Detect); Pseudomonas aeruginosa by PCR Not Detected (Not Detect); Serratia marcescens by PCR Not Detected (Not Detect); Staphylococcus aureus by PCR Not Detected (Not Detect); Streptococcus agalactiae(B)PCR Not Detected (Not Detect); Streptococcus by PCR Not Detected (Not Detect); Streptococcus pneumoniae PCR Not Detected (Not Detect); Streptococcus pyogenes (A) PCR Not Detected (Not Detect); blaKPC Carbapenem-Resist Gene Not Detected (Not Detect)
[2016-08-12] MEDS ORDERED: Furosemide 20 MG/2 ML VIAL IVP ONE (04:35)
[2016-08-12] MEDS: 0.9 % Sodium Chloride 1,000 ML IVC SCH (05:03)
[2016-08-12] MEDS: *HR* Enoxaparin 40 MG/0.4 ML SYRINGE SQ SCH (05:06)
--- NOTE | 2016-08-12 07:15 | Electrocardiograph Report ---
[address] [place] [address] Test Date: 2016-08-10 Pat Name: Buffy Kirkland Department: 104 Room: 2A Gender: F Idea Man: : 1965 Requested By: Yann Edmond Order Number: [id number] Reading MD: Pavan Lu MD Measurements Intervals [place] Rate: 139 P: 10 NV: 120 QRS: 9 QRSD: 84 T: -13 QT: 329 QTc: 410 Interpretive Statements SINUS TACHYCARDIA Electronically Signed On 08-12-2016 7:14:11 EST by Pavan Lu MD
[2016-08-12 07:48] LABS: Hemoglobin 11.5 g/dL (11.5-15.4); Mean Corpuscular HGB Conc 34.8 g/dL (31.6-35.5); Mean Corpuscular Hemoglobin 29.2 pg (28.0-33.3); Mean Corpuscular Volume 83.8 fL (83.0-100.0); Mean Platelet Volume 10.2 fL (9.4-12.4); Platelet Count 198 K/mcL (140-400); Red Blood Count 3.94 M/mcL (3.82-4.97); Red Cell Distribution Width 12.4 % (11.5-14.5)
[2016-08-12 08:08] LABS: BUN/Creatinine Ratio 12 (6-26); Blood Urea Nitrogen 8 mg/dL (7-20); Calcium 7.4 mg/dL (8.6-10.8); Carbon Dioxide 20 mEq/L (19-29); Chloride 101 mEq/L (98-109); Glucose 244 mg/dL (70-99); Magnesium 1.1 mg/dL (1.6-2.6); Osmolality,Calculated 276 (280-300); Sodium 130 mEq/L (136-145); eGFR For African Americans > 60 (> 60); eGFR For Non-African Americans > 60 (> 60)
[2016-08-12] MEDS: Insulin LISPRO 300 UNITS/3 ML VIAL SQ SCH ×4 (08:55→22:05)
[2016-08-12] MEDS: Magnesium Oxide 400 MG TABLET PO SCH ×2 (09:00→22:02)
--- NOTE | 2016-08-12 09:01 | Internal Med Progress Note ---
Date of Encounter: 08/12/16 Time of Encounter: 08:59 - Assessment and plan (1) Severe sepsis Current Visit: Yes Status: Acute Assessment and plan: Sepsis secondary to right pyelonephritis with a positive culture on 08/08/2016 with the Escherichia coli pansensitive Bandemia of 26%, toxic granulation Received 1 dose of ciprofloxacin at the ER Blood cultures growing gram-negative bacteria, likely the same Escherichia coli , await final report of blood culture Continue Rocephin 1 g every 12 hours day 3 Increase IV fluids Pain control with Dilaudid CT scan of the abdomen shows right pyelonephritis, diverticulosis, in the right adnexal cyst High risk due to sepsis Not ready to be discharged (2) Pyelonephritis Current Visit: Yes Status: Acute (3) Adnexal cyst Current Visit: Yes Status: Acute Assessment and plan: Incidental finding on the right pelvis (4) DM (diabetes mellitus), secondary uncontrolled Current Visit: Yes Status: Acute Assessment and plan: Hold metformin and Glucotrol Continue insulin sliding scale (5) Dehydration with hyponatremia Current Visit: Yes Status: Acute Assessment and plan: Secondary to sepsis (6) Diverticulosis Current Visit: Yes Status: Acute Qualifiers: Diverticulosis site: unspecified location Diverticulosis bleeding: diverticulosis without bleeding Qualified Code(s): K57.90 - Diverticulosis of intestine, part unspecified, without perforation or abscess without bleeding (7) Hypokalemia Current Visit: Yes Status: Acute Assessment and plan: Replete as needed - Time Spent With Patient Greater than 35 minutes - Subjective Interval history: Still running fevers, complaining of severe right lumbar pain 8 out of 10 in intensity, dysuria Feels very thirsty. Complains of some abdominal pain, nausea, no diarrhea, no chest pain - Constitutional Vitals: Temp Pulse Resp BP Pulse Ox 100.4 F H 110 20 142/80 92 L 08/12/16 08:31 08/12/16 08:31 08/12/16 08:31 08/12/16 08:31 08/12/16 08:31 General appearance: Present: A&O X 3, no acute distress, obese, answers questions appropriately - Head Head exam: Present: atraumatic, normocephalic - Eye Eye exam: Present: PERRL, conjuntiva pink, sclera anicteric Pupils: Present: PERRL - Neck Neck exam general surgery: Present: supple, trachea midline. Absent: lymphadenopathy - Respiratory Respiratory exam: Present: CTAB. Absent: accessory muscle use, rales, rhonchi, wheezes - Cardiovascular Cardiovascular exam: Present: RRR, +S1, +S2. Absent: diastolic murmur, gallop, rubs, systolic murmur - GI/Abdominal GI/Abdominal exam: Present: normal bowel sounds, soft, no peritoneal signs. Absent: distended, tenderness Additional comments: Right lumbar area tenderness - Extremities Exam Extremities exam: Present: warm, radial pulses palpable and symetrical. Absent : calf tenderness, cyanotic, pedal edema - Neurological Exam Neurological exam: Present: CN II-XII intact, oriented X3, no focal deficits. Absent: pronater drift, facial droop, speech deficit - Skin Skin exam: Present: dry, intact Internal Medicine: Result - Labs CBC & Chem 7: 08/12/16 06:59 08/12/16 06:59 Labs: Short CBC 08/12/16 Range/Units 06:59 WBC 15.2 H (4.3-11.1) K/mcL Hgb 11.5 (11.5-15.4) g/dL Hct 33.0 L (35.3-44.9) % Plt Count 198 (140-400) K/mcL BMP 08/12/16 06:59 Sodium 130 L Potassium 3.0 L Chloride 101 Carbon Dioxide 20 BUN 8 Creatinine 0.66 Glucose 244 H Calcium 7.4 L - ABG Interpretation ABG results: PT/INR, D-dimer PT 16.6 Seconds (9.4-12.1) H 08/10/16 15:40 Consult Discharge Plan - Plan Referrals: Alvaro Solis MD [Primary Care Provider] -
[2016-08-12] MEDS: Artificial Tears SOLN 15 ML BOTTLE OP SCH ×4 (10:54→21:58)
[2016-08-12] MEDS: Acetaminophen 325 MG TABLET PO PRN ×2 (11:43→22:12)
[2016-08-12] MEDS: Melatonin 3 MG TABLET PO SCH (22:02)
[2016-08-13] MEDS: *HR* Enoxaparin 40 MG/0.4 ML SYRINGE SQ SCH (06:26)
[2016-08-13 08:17] LABS: BUN/Creatinine Ratio 14 (6-26); Blood Urea Nitrogen 8 mg/dL (7-20); Calcium 7.7 mg/dL (8.6-10.8); Carbon Dioxide 21 mEq/L (19-29); Chloride 102 mEq/L (98-109); Glucose 182 mg/dL (70-99); Osmolality,Calculated 279 (280-300); Potassium 3.2 mEq/L (3.5-4.5); Sodium 133 mEq/L (136-145); eGFR For African Americans > 60 (> 60); eGFR For Non-African Americans > 60 (> 60)
[2016-08-13 08:22] LABS: Hematocrit 34.6 % (35.3-44.9); Mean Corpuscular HGB Conc 34.7 g/dL (31.6-35.5); Mean Corpuscular Hemoglobin 28.7 pg (28.0-33.3); Mean Corpuscular Volume 82.8 fL (83.0-100.0); Mean Platelet Volume 10.4 fL (9.4-12.4); Platelet Count 224 K/mcL (140-400); Red Blood Count 4.18 M/mcL (3.82-4.97); Red Cell Distribution Width 12.5 % (11.5-14.5)
[2016-08-13] MEDS: Insulin LISPRO 300 UNITS/3 ML VIAL SQ SCH ×3 (08:49→17:07)
[2016-08-13] MEDS: Magnesium Oxide 400 MG TABLET PO SCH ×2 (08:49→20:14)
[2016-08-13] MEDS: Artificial Tears SOLN 15 ML BOTTLE OP SCH ×4 (08:50→20:14)
[2016-08-13] MEDS ORDERED: Potassium Chloride Elixir 20 MEQ/15 ML UDC PO ONE (08:50)
--- NOTE | 2016-08-13 10:11 | Internal Med Progress Note ---
Date of Encounter: 08/13/16 Time of Encounter: 08:40 - Constitutional Vitals: Temp Pulse Resp BP Pulse Ox 98.1 F 98 16 163/100 93 L 08/13/16 08:47 08/13/16 08:47 08/13/16 08:47 08/13/16 08:47 08/13/16 09:08 General appearance: Present: A&O X 3, no acute distress, obese, answers questions appropriately Internal Medicine: Result - Labs CBC & Chem 7: 08/13/16 07:09 08/13/16 07:09 Labs: Short CBC 08/13/16 Range/Units 07:09 WBC 9.4 (4.3-11.1) K/mcL Hgb 12.0 (11.5-15.4) g/dL Hct 34.6 L (35.3-44.9) % Plt Count 224 (140-400) K/mcL BMP 08/13/16 07:09 Sodium 133 L Potassium 3.2 L Chloride 102 Carbon Dioxide 21 BUN 8 Creatinine 0.58 Glucose 182 H Calcium 7.7 L - ABG Interpretation ABG results: PT/INR, D-dimer PT 16.6 Seconds (9.4-12.1) H 08/10/16 15:40 Consult Discharge Plan - Plan Referrals: Alvaro Solis MD [Primary Care Provider] -
[2016-08-13] MEDS: Acetaminophen 325 MG TABLET PO PRN (14:10)
[2016-08-13] MEDS: Lisinopril-HCTZ 20-12.5mg TABLET PO SCH (15:31)
--- NOTE | 2016-08-13 15:34 | Internal Med Progress Note ---
<Mikhail Rosario - Last Filed: 08/13/16 16:18> Date of Encounter: 08/13/16 Time of Encounter: 08:45 - Assessment and plan (1) Pyelonephritis Current Visit: Yes Status: Acute Assessment and plan: Jacques sensitive E coli continue Rocephin-day 4 Still febrile and tachycardic so she will not be discharged today. (2) Bacteremia Current Visit: Yes Status: Acute Assessment and plan: No endocraditis as she only meets 2 Crane minor criteria with fever and bacteremia with organism that dosent typically cause endocarditis. repeat blood culture pending. 2 weeks of antibiotics after first negative culture. (3) Sepsis Current Visit: Yes Status: Acute Assessment and plan: Patient met sepsis criteria on admission with fever, leukocytosis, and tachycardia Peak lactic acid 2.3 No organ dysfucntion so not Severe Sepsis. she is improving clinically Hemodynamically stable Leukoctytosis has resolved. Blood and urine cultures have grown Jacques sensitive Ecoli. Blood culutes Positive from 08/10/16 repeat cultures ordered today. Qualifiers: Qualified Code(s): A41.9 - Sepsis, unspecified organism (4) Leukocytosis Current Visit: Yes Status: Acute Assessment and plan: resolved Qualifiers: Qualified Code(s): D72.829 - Elevated white blood cell count, unspecified (5) Diabetes Current Visit: Yes Status: Acute Assessment and plan: she is above goal for inpatient Increase sliding scale to medium dose. Qualifiers: Qualified Code(s): E11.9 - Type 2 diabetes mellitus without complications (6) Essential hypertension Current Visit: Yes Status: Acute Assessment and plan: Renal function normal hemodynamically stable Hypertensive start back home Lisinopril/HCTZ. (7) Diverticulosis of colon Current Visit: Yes Status: Acute Qualifiers: Qualified Code(s): K57.30 - Diverticulosis of large intestine without perforation or abscess without bleeding (8) Adnexal cyst Current Visit: Yes Status: Acute Assessment and plan: follow up with PCP (9) DVT prophylaxis Current Visit: Yes Status: Acute Assessment and plan: On Lovenox. - Subjective Interval history: No major events overnight. The patient does complain of continued right flank pain. However she states that this is improving. She denies any dysuria or hematuria. She does admit to subjective chills overnight. She denies any chest pain, dyspnea, abdominal pain. Denies any diarrhea or loose stools. She has no further complaints or concerns at this time. - Constitutional Vitals: Temp Pulse Resp BP Pulse Ox 98.7 F 102 18 163/110 94 L 08/13/16 11:54 08/13/16 11:54 08/13/16 11:54 08/13/16 11:54 08/13/16 11:54 Exam: General: This is a well-developed well-nourished 51-year-old female. She is alert and orientated to person place and situation. She is lying in bed appears to be comfortable she is in no acute distress at this time. Head: Has no cephalic atraumatic. EENT: Anicteric sclerae, pupils equally round reactive to light and accommodation, moist mucous Merritts, neck supple without mass or thyromegaly. No cervical or supraclavicular lymphadenopathy. Heart: Regular rate and rhythm without murmurs rubs or gallops. Lungs: Clear to auscultation bilaterally. Abdomen: Abdomen is obese, nondistended, nontender to palpation. Bowel sounds are positive in all quadrants. She does have some mild tenderness with percussion over the right costophrenic angle. Musculoskeletal: Grossly normal for age no gross tumor noted. Extremities: There is no clubbing, cyanosis. There is mild pedal edema. Internal Medicine: Result - Labs CBC & Chem 7: 08/13/16 07:09 08/13/16 07:09 Labs: Short CBC 08/13/16 Range/Units 07:09 WBC 9.4 (4.3-11.1) K/mcL Hgb 12.0 (11.5-15.4) g/dL Hct 34.6 L (35.3-44.9) % Plt Count 224 (140-400) K/mcL BMP 08/13/16 07:09 Sodium 133 L Potassium 3.2 L Chloride 102 Carbon Dioxide 21 BUN 8 Creatinine 0.58 Glucose 182 H Calcium 7.7 L - ABG Interpretation ABG results: PT/INR, D-dimer PT 16.6 Seconds (9.4-12.1) H 08/10/16 15:40 Consult Discharge Plan - Plan Referrals: Alvaro Solis MD [Primary Care Provider] - 08/20/16 2:15 pm ( ) <Jahaira,Marcio P - Last Filed: 08/13/16 18:29> Date of Encounter: 08/13/16 - Constitutional Vitals: Temp Pulse Resp BP Pulse Ox 98.1 F 91 18 156/99 94 L 08/13/16 15:52 08/13/16 15:52 08/13/16 15:52 08/13/16 15:52 08/13/16 15:52 Internal Medicine: Result - Labs CBC & Chem 7: 08/13/16 07:09 08/13/16 07:09 Labs: Short CBC 08/13/16 Range/Units 07:09 WBC 9.4 (4.3-11.1) K/mcL Hgb 12.0 (11.5-15.4) g/dL Hct 34.6 L (35.3-44.9) % Plt Count 224 (140-400) K/mcL BMP 08/13/16 07:09 Sodium 133 L Potassium 3.2 L Chloride 102 Carbon Dioxide 21 BUN 8 Creatinine 0.58 Glucose 182 H Calcium 7.7 L - ABG Interpretation ABG results: PT/INR, D-dimer PT 16.6 Seconds (9.4-12.1) H 08/10/16 15:40 - Attending Attestation I examined this patient and my medical decision-making was reviewed with the COAL UNLOADER/PA/Advanced Practice Nurse/Resident Physician. I agree with the documented findings, disposition and treatment plan as described except to the extent set forth below.
[2016-08-13] MEDS ORDERED: Insulin LISPRO 300 UNITS/3 ML VIAL SQ SCH (16:17)
[2016-08-13] MEDS: Melatonin 3 MG TABLET PO SCH (20:14)
[2016-08-14] MEDS: *HR* Enoxaparin 40 MG/0.4 ML SYRINGE SQ SCH (06:12)
[2016-08-14 06:35] VITALS: BP 162/98
[2016-08-14 07:07] LABS: BUN/Creatinine Ratio 9 (6-26); Calcium 7.8 mg/dL (8.6-10.8); Carbon Dioxide 23 mEq/L (19-29); Chloride 100 mEq/L (98-109); Glucose 196 mg/dL (70-99); Magnesium 1.3 mg/dL (1.6-2.6); Osmolality,Calculated 279 (280-300); Potassium 3.3 mEq/L (3.5-4.5); Sodium 133 mEq/L (136-145); eGFR For African Americans > 60 (> 60); eGFR For Non-African Americans > 60 (> 60)
[2016-08-14 07:13] LABS: Blood Urea Nitrogen 5 mg/dL (7-20)
[2016-08-14 07:25] LABS: Hematocrit 34.2 % (35.3-44.9); Hemoglobin 11.8 g/dL (11.5-15.4); Mean Corpuscular HGB Conc 34.5 g/dL (31.6-35.5); Mean Corpuscular Hemoglobin 28.2 pg (28.0-33.3); Mean Corpuscular Volume 81.8 fL (83.0-100.0); Mean Platelet Volume 10.4 fL (9.4-12.4); Platelet Count 247 K/mcL (140-400); Red Blood Count 4.18 M/mcL (3.82-4.97); Red Cell Distribution Width 12.4 % (11.5-14.5)
[2016-08-14] MEDS: Insulin LISPRO 300 UNITS/3 ML VIAL SQ SCH (07:54)
[2016-08-14] MEDS: Lisinopril-HCTZ 20-12.5mg TABLET PO SCH (07:54)
[2016-08-14] MEDS: Artificial Tears SOLN 15 ML BOTTLE OP SCH (07:54)
[2016-08-14] MEDS: Magnesium Oxide 400 MG TABLET PO SCH (07:54)
[2016-08-14] MEDS ORDERED: Magnesium Sulfate 2 GM in D5% in Water 100 ML IVPB ONE (08:10)
[2016-08-14] MEDS ORDERED: Potassium Chloride Elixir 20 MEQ/15 ML UDC PO ONE (08:10)
--- NOTE | 2016-08-14 08:32 | Discharge Summary ---
<Mikhail Rosario - Last Filed: 08/14/16 08:39> Date of Encounter: 08/14/16 Time of Encounter: 08:28 - Discharge Diagnosis (1) Pyelonephritis Priority: Primary Status: Acute (2) Bacteremia Priority: Primary Status: Acute (3) Sepsis Priority: Primary Status: Acute Qualifiers: Qualified Code(s): A41.9 - Sepsis, unspecified organism (4) Leukocytosis Priority: Secondary Status: Acute Qualifiers: Qualified Code(s): D72.829 - Elevated white blood cell count, unspecified (5) Diabetes Priority: Secondary Status: Acute Qualifiers: Qualified Code(s): E11.9 - Type 2 diabetes mellitus without complications (6) Essential hypertension Priority: Secondary Status: Acute (7) Diverticulosis of colon Priority: Secondary Status: Acute Qualifiers: Qualified Code(s): K57.30 - Diverticulosis of large intestine without perforation or abscess without bleeding (8) Adnexal cyst Priority: Secondary Status: Acute Comments: she will follow up with PCP (9) DVT prophylaxis Priority: Secondary Status: Acute - Discharge Medications Prescriptions: Cefdinir [Omnicef] 300 mg PO BID 11 Days Home Medications: Lisinopril/Hydrochlorothiazide [Zestoretic 20-12.5 mg Tablet] 1 tab PO DAILY 10/23 [History] Metformin [Glucophage] 1,000 mg PO BID 08/11/16 [History] Pravastatin Sodium [Pravachol] 40 mg PO DAILY 08/11/16 [History] Cefdinir [Omnicef] 300 mg PO BID 11 Days 08/14/16 [Rx] Allergies/Adverse Reactions: Allergies exenatide [From Byetta] Adverse Reaction (Verified 08/11/16 13:50) Gastrointestinal Upset iodine Adverse Reaction (Verified 06/14/15 18:16) See Comments liraglutide [From Victoza] Adverse Reaction (Verified 08/11/16 13:50) Gastrointestinal Upset Date of admission: 08/11/16 15:24 Primary care physician: Alvaro Solis MD Consults: 08/14/16 08:17 Consult to Invasive Line Access Team [CONS] Routine Reason for Consult: iv atb Line Type: EPIV Discharging clinician: Mikhail Rosario Anticipated date of discharge: 08/14/16 - Patient Status Disposition: Home, Self-Care Functional capacity at discharge: independent ambulation Overall status at discharge: patient is progressing back to baseline - Discharge Instructions Follow Up With: Alvaro Solis MD [Primary Care Provider] - 08/20/16 2:15 pm ( ) Additional Instructions: Please take medications as prescribed. Please take entire course of antibiotics. Please follow-up with your family doctor in 7-10 days. Call your family doctor or return to ER if you have return of fever or worsening right-sided pain. - Diet and Activity Activity: increase activity as tolerated Diet: diabetic diet Hospital course: Ms. Kirkland is a 51 year old female who was admitted with right-sided pyelonephritis, sepsis, and gram-negative bacteremia. Both her blood and urine cultures are growing pansensitive Escherichia coli. She has had 4 days of Rocephin by IV. Today there is no loss significant lab or vital sign abnormalities. She has been afebrile for the past 24 hours. She is doing well she is eating and drinking. Having normal bowel and bladder functions. Plan will be to discharge her today on Omnicef to complete a course of 14 days. We will also follow-up with her blood cultures to ensure that there are no slow- growing organisms present. However patient has improved markedly clinically with the current treatment and is stable to discharge. I have discussed the above plan with the patient and she has voiced back her understanding and agreement. - Time Spent with Patient Total time spent providing and/or coordinating discharge services: Greater than 30 minutes (I spent approximately 32 minutes discharging this patient.) - Constitutional Vitals: Temp Pulse Resp BP Pulse Ox 98.1 F 87 18 162/98 94 L 08/14/16 06:31 08/14/16 06:31 08/14/16 06:31 08/14/16 06:31 08/14/16 06:31 Exam: General: This is a 51-year-old Year old female who is alert and orientated to person place time and situation. No acute distress. HEENT: Head is normocephalic atraumatic pupils are equally round reactive to light and accommodation, sclera are anicteric, nares are patent, normal external appearance of the nose and ears, the posterior pharynx is pink without cobblestoning or exudate. Uvula is midline, tongue is midline, dentition is intact. Heart: Regular rate and rhythm without murmur rubs or gallops, S1, S2, without S3 or S4. Capillary refills less than 2 seconds. Radial pulses are 2 out of 4 and synchronous. No JVD with inspection of the neck. Lungs: Clear to auscultation bilaterally, normal effort. Abdomen: Bowel sounds are normoactive, no bruits, abdomen is soft, no tenderness to palpation, no organomegaly noted, no guarding throughout the exam. Mild costovertebral tenderness right. Less so than yesterday. Musculoskeletal: No gross deformity noted, moves all limbs without difficulty. Integument: Cool, dry, normal turgor, no edema. Extremities: No clubbing, or cyanosis. Mild pedal edema. Less than yesterday. - VTE Documentation of Mechanical Device: Graduated compression elastic hosiery <Marcio Campo P - Last Filed: 08/14/16 18:40> Date of admission: 08/11/16 15:24 Primary care physician: Alvaro Solis MD Consults: 08/14/16 08:17 Consult to Invasive Line Access Team [CONS] Routine Reason for Consult: iv atb Line Type: EPIV Hospital course: Ms. Kirkland is a 51 year old female - Time Spent with Patient Total time spent providing and/or coordinating discharge services: - Constitutional Vitals: Temp Pulse Resp BP Pulse Ox 98.1 F 87 18 162/98 94 L 08/14/16 06:31 08/14/16 06:31 08/14/16 06:31 08/14/16 06:31 08/14/16 06:31 - Attending Attestation I examined this patient and my medical decision-making was reviewed with the NIGHT SUPERVISOR/PA/Advanced Practice Nurse/Resident Physician. I agree with the documented findings, disposition and treatment plan as described except to the extent set forth below.
[2016-08-14 08:49] LABS: Lymphocytes # 2.4 K/mcL (0.6-4.6); Monocytes # 0.7 K/mcL (0.0-1.3); Neutrophils # 5.4 K/mcL (1.6-8.9)
[2016-08-14 08:50] LABS: Reactive Lymphocytes Present (Not Present)
[2016-08-14 08:51] LABS: Platelet Estimate Normal (Normal); Toxic Granulation Present (Not Present)
[2016-08-14] MEDS ORDERED: FLU VACC QS2016-17 36MOS UP/PF 0.5 ML SYRINGE IM ONE (09:41)
== END 2016-08-14 10:43 | disposition home or self-care (01) | DRG 872 ==
LOC: 2ANU 14:10 → EMEROO 14:10 → 2ANU 20:36 → SUATTDRO 08-11 15:24
PROVIDERS: ADMIT Family Medicine; ATTEND Internal Medicine

== ENCOUNTER 2021-11-29 08:49 | Inpatient (IN) ==
[2021-11-29] MEDS ORDERED: Iopamidol - 370 500 ML MLS IVP ONE (09:06)
[2021-11-29] MEDS ORDERED: methylPREDNISolone 125 MG/2 ML VIAL IVP ONE (09:14)
[2021-11-29 09:32] LABS: Basophils # 0.1 K/mcL (0.0-0.2); Basophils % 0.7 %; Eosinophils # 0.2 K/mcL (0.0-0.6); Eosinophils % 2.1 %; Hematocrit 45.5 % (35.3-44.9); Hemoglobin 15.6 g/dL (11.5-15.4); Immature Granulocytes % 0.2 % (0-4); Lymphocytes % 24.8 %; Mean Corpuscular HGB Conc 34.3 g/dL (31.6-35.5); Mean Corpuscular Hemoglobin 28.8 pg (28.0-33.3); Mean Corpuscular Volume 83.9 fL (83.0-100.0); Mean Platelet Volume 10.2 fL (9.4-12.4); Monocytes # 0.5 K/mcL (0.0-1.3); Monocytes % 5.7 %; Neutrophils # 5.4 K/mcL (1.6-8.9); Platelet Count 257 K/mcL (140-400); Red Blood Count 5.42 M/mcL (3.82-4.97); Red Cell Distribution Width 12.3 % (11.5-14.5); Segmented Neutrophils % 66.5 %; White Blood Count 8.1 K/mcL (4.3-11.1)
[2021-11-29 09:43] LABS: BUN/Creatinine Ratio 21 (6-26); Blood Urea Nitrogen 14 mg/dL (6-20); Calcium 9.5 mg/dL (8.6-10.3); Carbon Dioxide 26 mEq/L (23-29); Chloride 103 mEq/L (98-107); Glucose 210 mg/dL (70-105); Osmolality,Calculated 291 (280-300); Potassium 3.7 mEq/L (3.5-5.1); Sodium 137 mEq/L (136-145); eGFR For African Americans > 60 (> 60); eGFR For Non-African Americans > 60 (> 60)
[2021-11-29] MEDS ORDERED: Aspirin 325 MG TABLET PO ONE (11:46)
[2021-11-29] MEDS ORDERED: Ondansetron ODT 4 MG TAB.RAPDIS SL PRN (13:01)
[2021-11-29] MEDS ORDERED: Naloxone 0.4 MG/ML INJ IVP PRN (13:01)
[2021-11-29] MEDS ORDERED: Mag Hydrox/Al Hydrox/Simeth 30 ML UDC PO PRN (13:01)
[2021-11-29] MEDS ORDERED: MOM Conc 10 ML UD.LIQ PO PRN (13:01)
[2021-11-29] MEDS ORDERED: *HR* Dextrose 50 % in Water (Syg) 50 ML SYRINGE IVP PRN (13:05)
[2021-11-29] MEDS ORDERED: Dextrose Gel 15 GM/37.5 ML TUBE PO PRN ×2 (13:05)
[2021-11-29] MEDS ORDERED: D5% in Water 1,000 ML IVC PRN (13:05)
[2021-11-29 13:40] LABS: Estimated Average Glucose 220 mg/dl; Hemoglobin A1C 9.3 %
[2021-11-29] MEDS ORDERED: Perflutren Lipid Microsphere 1.3 ML in 0.9 % Sodium Chloride 8.7 ML IVP PRN (14:05)
[2021-11-29] MEDS: amLODIPine 5 MG TABLET PO SCH (16:06)
[2021-11-29] MEDS: lisinopriL 20 MG TABLET PO SCH (16:07)
[2021-11-29] MEDS: Insulin LISPRO 300 UNITS/3 ML VIAL SUBQ SCH ×3 (17:27→19:46)
[2021-11-29] MEDS ORDERED: Acetaminophen 325 MG TABLET PO ONE (19:30)
[2021-11-29] MEDS: carvediloL 6.25 MG TABLET PO SCH (19:45)
[2021-11-29] MEDS ORDERED: Insulin DETEMIR 100 UNIT/ML X5UNITS SUBQ SCH (21:00)
[2021-11-29] MEDS ORDERED: Insulin Regular, Human 100 UNIT/ML SUBQ ONE (23:14)
[2021-11-29] MEDS ORDERED: Insulin LISPRO 300 UNITS/3 ML VIAL SUBQ ONE (23:30)
[2021-11-30 04:45] LABS: Basophils % 0.2 %; Eosinophils % 0.1 %; Hematocrit 44.9 % (35.3-44.9); Hemoglobin 15.4 g/dL (11.5-15.4); Immature Granulocytes % 0.6 % (0-4); Lymphocytes % 16.9 %; Mean Corpuscular HGB Conc 34.3 g/dL (31.6-35.5); Mean Corpuscular Hemoglobin 28.8 pg (28.0-33.3); Mean Corpuscular Volume 83.9 fL (83.0-100.0); Mean Platelet Volume 10.5 fL (9.4-12.4); Monocytes # 1.2 K/mcL (0.0-1.3); Monocytes % 6.7 %; Neutrophils # 13.4 K/mcL (1.6-8.9); Platelet Count 307 K/mcL (140-400); Red Blood Count 5.35 M/mcL (3.82-4.97); Red Cell Distribution Width 12.5 % (11.5-14.5); Segmented Neutrophils % 75.5 %
[2021-11-30 04:46] LABS: White Blood Count 17.7 K/mcL (4.3-11.1)
[2021-11-30 05:05] LABS: Alanine Aminotransferase 34 Units/L (7-52); Albumin 3.6 g/dL (3.5-5.7); Albumin/Globulin Ratio 1.2 (1.1-2.2); Alkaline Phosphatase 87 Units/L (34-104); Aspartate Amino Transferase 17 Units/L (13-39); BUN/Creatinine Ratio 31 (6-26); Bilirubin,Total 0.4 mg/dL (0.3-1.0); Blood Urea Nitrogen 27 mg/dL (6-20); Calcium 9.3 mg/dL (8.6-10.3); Carbon Dioxide 22 mEq/L (23-29); Chloride 103 mEq/L (98-107); Chol/HDL Ratio 5.1 (0-4.9); Cholesterol 197 mg/dL (< 200); Globulin 3.1 g/dL (2.4-3.5); Glucose 260 mg/dL (70-105); HDL Cholesterol 39 mg/dL (40-59); LDL Cholesterol,Calculated 136 mg/dL (< 100); Osmolality,Calculated 294 (280-300); Potassium 3.4 mEq/L (3.5-5.1); Sodium 135 mEq/L (136-145); Total Protein 6.7 g/dL (6.4-8.9); Triglycerides 108 mg/dL (< 150); eGFR For African Americans > 60 (> 60); eGFR For Non-African Americans > 60 (> 60)
[2021-11-30] MEDS: *HR* Enoxaparin 40 MG/0.4 ML SYRINGE SQ SCH (05:47)
[2021-11-30] MEDS: carvediloL 6.25 MG TABLET PO SCH ×2 (07:40→16:55)
[2021-11-30] MEDS: Aspirin Enteric Coated 81 MG Tablet PO SCH (07:40)
[2021-11-30] MEDS: lisinopriL 20 MG TABLET PO SCH (07:41)
[2021-11-30] MEDS: Insulin LISPRO 300 UNITS/3 ML VIAL SUBQ SCH ×4 (07:41→21:23)
[2021-11-30] MEDS: amLODIPine 5 MG TABLET PO SCH (07:41)
[2021-11-30] MEDS: Melatonin 3 MG TABLET PO PRN (21:19)
[2021-11-30] MEDS: Insulin DETEMIR 100 UNIT/ML X5UNITS SUBQ SCH (21:26)
[2021-12-01] MEDS: *HR* Enoxaparin 40 MG/0.4 ML SYRINGE SQ SCH (05:59)
[2021-12-01] MEDS: Aspirin Enteric Coated 81 MG Tablet PO SCH (07:56)
[2021-12-01] MEDS: carvediloL 6.25 MG TABLET PO SCH ×2 (07:56→17:09)
[2021-12-01] MEDS: lisinopriL 20 MG TABLET PO SCH (07:56)
[2021-12-01] MEDS: amLODIPine 5 MG TABLET PO SCH (07:56)
[2021-12-01] MEDS: Insulin LISPRO 300 UNITS/3 ML VIAL SUBQ SCH ×4 (07:57→21:15)
[2021-12-01] MEDS: Melatonin 3 MG TABLET PO PRN (21:14)
[2021-12-01] MEDS: Insulin DETEMIR 100 UNIT/ML X5UNITS SUBQ SCH (21:16)
[2021-12-02 01:46] LABS: Basophils # 0.1 K/mcL (0.0-0.2); Basophils % 0.7 %; Eosinophils # 0.2 K/mcL (0.0-0.6); Eosinophils % 1.9 %; Hematocrit 40.7 % (35.3-44.9); Hemoglobin 13.9 g/dL (11.5-15.4); Immature Granulocytes % 0.3 % (0-4); Lymphocytes # 3.1 K/mcL (0.6-4.6); Lymphocytes % 30.3 %; Mean Corpuscular HGB Conc 34.2 g/dL (31.6-35.5); Mean Corpuscular Hemoglobin 29.3 pg (28.0-33.3); Mean Corpuscular Volume 85.9 fL (83.0-100.0); Mean Platelet Volume 10.3 fL (9.4-12.4); Monocytes # 0.7 K/mcL (0.0-1.3); Monocytes % 7.1 %; Platelet Count 232 K/mcL (140-400); Red Blood Count 4.74 M/mcL (3.82-4.97); Red Cell Distribution Width 12.5 % (11.5-14.5); Segmented Neutrophils % 59.7 %; White Blood Count 10.1 K/mcL (4.3-11.1)
[2021-12-02] MEDS: *HR* Enoxaparin 40 MG/0.4 ML SYRINGE SQ SCH (05:14)
[2021-12-02] MEDS: Aspirin Enteric Coated 81 MG Tablet PO SCH (08:11)
[2021-12-02] MEDS: lisinopriL 20 MG TABLET PO SCH (08:11)
[2021-12-02] MEDS: Insulin LISPRO 300 UNITS/3 ML VIAL SUBQ SCH ×4 (08:11→21:10)
[2021-12-02] MEDS: amLODIPine 5 MG TABLET PO SCH (08:11)
[2021-12-02] MEDS: carvediloL 6.25 MG TABLET PO SCH ×2 (08:11→16:42)
[2021-12-02] MEDS: Melatonin 3 MG TABLET PO PRN (21:10)
[2021-12-02] MEDS: Insulin DETEMIR 100 UNIT/ML X5UNITS SUBQ SCH (21:11)
[2021-12-03] MEDS: *HR* Enoxaparin 40 MG/0.4 ML SYRINGE SQ SCH (06:03)
[2021-12-03] MEDS: Aspirin Enteric Coated 81 MG Tablet PO SCH (08:18)
[2021-12-03] MEDS: carvediloL 6.25 MG TABLET PO SCH ×2 (08:18→16:52)
[2021-12-03] MEDS: amLODIPine 5 MG TABLET PO SCH (08:18)
[2021-12-03] MEDS: lisinopriL 20 MG TABLET PO SCH (08:19)
[2021-12-03] MEDS: Insulin LISPRO 300 UNITS/3 ML VIAL SUBQ SCH ×5 (08:19→21:43)
[2021-12-03] MEDS: Insulin DETEMIR 100 UNIT/ML X5UNITS SUBQ SCH (21:45)
[2021-12-03] MEDS: Melatonin 3 MG TABLET PO PRN (21:49)
[2021-12-04] MEDS: *HR* Enoxaparin 40 MG/0.4 ML SYRINGE SQ SCH (05:31)
[2021-12-04] MEDS: Aspirin Enteric Coated 81 MG Tablet PO SCH (07:36)
[2021-12-04] MEDS: carvediloL 6.25 MG TABLET PO SCH ×2 (07:37→16:42)
[2021-12-04] MEDS: amLODIPine 5 MG TABLET PO SCH (07:37)
[2021-12-04] MEDS: lisinopriL 20 MG TABLET PO SCH (07:37)
[2021-12-04] MEDS: Insulin LISPRO 300 UNITS/3 ML VIAL SUBQ SCH ×6 (07:39→21:41)
[2021-12-04] MEDS: Melatonin 3 MG TABLET PO PRN (21:41)
[2021-12-04] MEDS: Insulin DETEMIR 100 UNIT/ML X5UNITS SUBQ SCH (21:41)
[2021-12-05] MEDS: *HR* Enoxaparin 40 MG/0.4 ML SYRINGE SQ SCH (05:39)
[2021-12-05] MEDS: lisinopriL 20 MG TABLET PO SCH (08:02)
[2021-12-05] MEDS: Aspirin Enteric Coated 81 MG Tablet PO SCH (08:02)
[2021-12-05] MEDS: Insulin LISPRO 300 UNITS/3 ML VIAL SUBQ SCH ×4 (08:02→21:12)
[2021-12-05] MEDS: amLODIPine 5 MG TABLET PO SCH (08:03)
[2021-12-05] MEDS: carvediloL 6.25 MG TABLET PO SCH ×2 (08:03→17:00)
[2021-12-05] MEDS ORDERED: Insulin DETEMIR 100 UNIT/ML X5UNITS SUBQ SCH (21:00)
[2021-12-06] MEDS: *HR* Enoxaparin 40 MG/0.4 ML SYRINGE SQ SCH (05:51)
[2021-12-06] MEDS: carvediloL 6.25 MG TABLET PO SCH (08:34)
[2021-12-06] MEDS: Insulin LISPRO 300 UNITS/3 ML VIAL SUBQ SCH ×2 (08:34→11:48)
[2021-12-06] MEDS: amLODIPine 5 MG TABLET PO SCH (08:34)
[2021-12-06] MEDS: lisinopriL 20 MG TABLET PO SCH (08:34)
[2021-12-06] MEDS: Aspirin Enteric Coated 81 MG Tablet PO SCH (08:34)
[2021-12-06 15:00] VITALS: BP 113/72; PULSE 78; TEMP 97.7; O2SAT 96
[2021-12-06] MEDS ORDERED: Insulin DETEMIR 100 UNIT/ML X5UNITS SUBQ SCH (21:00)
== END 2021-12-06 17:32 | disposition home or self-care (01) | DRG 65 ==
LOC: EMEROOARM 08:49 → 3BNU 08:49 → SUATTDRO 18:34
PROVIDERS: ADMIT Internal Medicine; ATTEND Nurse Practitioner